=== PATIENT | female | born 1985 | race Caucasian/White ===

== ENCOUNTER 2019-07-01 13:28 | Emergency (ER) | payer MEDICAID ==
[~2019-07-01] VITALS: Ht 162.6 cm; Wt 56.1 kg
[2019-07-01 14:51] VITALS: BP 111/67
== END 2019-07-01 14:53 | disposition home or self-care (01) ==
LOC: ER 13:30
DX: F15.90 Other stimulant use, unspecified, uncomplicated (principal); Z01.00 Encounter for examination of eyes and vision without abnormal findings; F12.90 Cannabis use, unspecified, uncomplicated; Z87.891 Personal history of nicotine dependence
CPT/HCPCS: 99281

== ENCOUNTER 2019-07-15 11:12 | Emergency (ER) | payer MEDICAID ==
[~2019-07-15] VITALS: Ht 152.4 cm; Wt 63.3 kg
[2019-07-15 11:19] VITALS: BP 125/84
== END 2019-07-15 12:35 | disposition home or self-care (01) ==
LOC: ER 11:12
DX: S76.111A Strain of right quadriceps muscle, fascia and tendon, initial encounter (principal); F12.90 Cannabis use, unspecified, uncomplicated; F15.90 Other stimulant use, unspecified, uncomplicated; W10.8XXA Fall (on) (from) other stairs and steps, initial encounter; Y93.89 Activity, other specified; Y92.89 Other specified places as the place of occurrence of the external cause; Y99.9 Unspecified external cause status
CPT/HCPCS: 99282